=== PATIENT | male | born 1970 | race African-American/Black ===

== ENCOUNTER 2019-05-19 07:12 | Day surgery (SDC) | payer OTHER ==
[2019-05-14 14:15] VITALS: BMI 45.3
[2019-05-19] MEDS ORDERED: LIDOCAINE HCL/PF 2% SDV 5ML VIAL ONE (09:02)
[2019-05-19 10:08] VITALS: TEMP 98.6
[2019-05-19 10:12] VITALS: BP 113/65; PULSE 69
--- NOTE | 2019-05-31 09:32 | PATH ---
Surgical Pathology Report Patient Name: CEZAR BARRETT [facility]. Rec. #: [id number] /Age/Gender: 1970 (Age: 48) / M Account: [id number] Location: [facility] Taken: 05/19/2019 Received: 05/19/2019 Reported: 05/31/2019 Physicians: Remi Sanders M.D. Specimen(s) Received A: SECOND PORTION OF DUODENUM B: GASTRIC ANTRUM Clinical History GERD Postoperative diagnosis: Gastritis Final Diagnosis A. SECOND PORTION OF DUODENUM, BIOPSY: DUODENAL MUCOSA WITH NO PATHOLOGIC FINDINGS. B. GASTRIC ANTRUM, BIOPSY: MILD CHRONIC GASTRITIS WITH FEATURES OF REACTIVE GASTROPATHY. IMMUNOSTAIN IS NEGATIVE FOR H. PYLORI ORGANISMS. Electronically Signed Leydi Vázquez M.D. Gross Description A. Received in formalin, labeled "second portion duodenum" is a osborne, irregular portion of soft tissue measuring 0.3 cm. in greatest dimension. The specimen is submitted in toto in one cassette. B. Received in formalin, labeled "gastric antrum" are 2 osborne, irregular portions of soft tissue each measuring 0.3 cm. in greatest dimension. The specimens are submitted in toto in one cassette. AE/05/20/2019 ebram/05/20/2019
== END 2019-05-19 10:00 | disposition home or self-care (01) ==
LOC: FASU-ENDO 07:12
PROVIDERS: ATTEND Internal Medicine Gastroenterology
PROC: 0DB68ZX Excision of Stomach, Via Natural or Artificial Opening Endoscopic, Diagnostic (ICD-10-PCS; 2019-05-19)
PROC: 0DB98ZX Excision of Duodenum, Via Natural or Artificial Opening Endoscopic, Diagnostic (ICD-10-PCS; principal; 2019-05-19 09:11)
DX: Z01.818 Encounter for other preprocedural examination (principal); K29.50 Unspecified chronic gastritis without bleeding; Z98.84 Bariatric surgery status
CPT/HCPCS: 82962; 88305-TC; 88342-TC

== ENCOUNTER 2020-11-23 08:19 | Day surgery (SDC) | payer OTHER ==
[2020-11-21 12:08] VITALS: BMI 45.3
[2020-11-23] MEDS ORDERED: LIDOCAINE HCL/PF 2% SDV 5ML VIAL ONE (10:25)
[2020-11-23] MEDS ORDERED: PROPOFOL 20 ML ONE (10:25)
[2020-11-23 11:04] VITALS: TEMP 97.7
[2020-11-23 11:37] VITALS: BP 147/94; PULSE 85
== END 2020-11-23 11:30 | disposition home or self-care (01) ==
LOC: FASU-ENDO 08:19 → MERGE 08:19 → EDSEX 10:30 → FASU-ENDO 11:30
PROVIDERS: ATTEND Internal Medicine Gastroenterology
PROC: 0DB38ZX Excision of Lower Esophagus, Via Natural or Artificial Opening Endoscopic, Diagnostic (ICD-10-PCS; 2020-11-23)
PROC: 0DB78ZX Excision of Stomach, Pylorus, Via Natural or Artificial Opening Endoscopic, Diagnostic (ICD-10-PCS; principal; 2020-11-23 10:37)
DX: K22.10 Ulcer of esophagus without bleeding (principal); K21.00 Gastro-esophageal reflux disease with esophagitis, without bleeding; K29.70 Gastritis, unspecified, without bleeding
CPT/HCPCS: 82962; 88305-TC; 88342-TC